=== PATIENT | female | born 1985 | race Caucasian/White ===

== ENCOUNTER 2020-04-07 11:29 | Emergency (ER) | payer OTHER, SELFPAY ==
[~2020-04-07] VITALS: Ht 160 cm; Wt 61.2 kg
[2020-04-07 11:31] VITALS: Ht 160 cm; Wt 61.2 kg
[2020-04-07 15:19] LABS: microscopic required? YES; urine erythrocyte NEGATIVE (NEGATIVE)
[2020-04-07 16:38] LABS: BASOPHIL % 0.5 % (0.2-1.3); PLATELET COUNT 322 x10^3mcL (179-408)
[2020-04-07 16:53] LABS: CALCIUM 8.4 mg/dL (8.5-10.1); CARBON DIOXIDE 26.1 mmol/L (21-32); CHLORIDE SERUM 103 mmol/L (98-107); CREATININE SERUM 0.7 mg/dL (0.6-1.0); GFR1 > 60 mL/min; GLUCOSE SERUM 96 mg/dL (74-106); POTASSIUM SERUM 3.9 mmol/L (3.5-5.1); SODIUM SERUM 136 mmol/L (136-145)
[2020-04-07 16:58] LABS: ALBUMIN 3.8 g/dL (3.4-5.0); ALKALINE PHOSPHATASE 51 U/L (46-116); ALT/SGPT 22 U/L (14-59); AST/SGOT 14 U/L (15-37); BILIRUBIN TOTAL 0.6 mg/dL (0.20-1.00); TOTAL PROTEIN, SERUM 7.2 g/dL (6.4-8.2)
[2020-04-07 18:40] VITALS: BP 142/93
== END 2020-04-07 18:40 | disposition home or self-care (01) ==
LOC: ED 11:29
PROVIDERS: Emergency Medicine
DX: R06.00 Dyspnea, unspecified (principal)
CPT/HCPCS: 36600; 83880; 85378